=== PATIENT | male | born 1985 | race African-American/Black ===

== ENCOUNTER 2019-05-24 05:27 | Emergency (ER) | payer SELFPAY ==
[~2019-05-24] VITALS: Ht 188 cm; Wt 73.9 kg
[2019-05-24 05:29] VITALS: BP 126/109
[2019-05-24] MEDS ORDERED: HYDROcodone/APAP 5/325 TABLET ONE (07:20)
[2019-05-24] MEDS ORDERED: HYDROcodone/APAP 5/325 TABLET PO ONE (07:30)
== END 2019-05-24 07:45 | disposition home or self-care (01) ==
LOC: ED 07:00
DX: S20.212A Contusion of left front wall of thorax, initial encounter (principal); W18.30XA Fall on same level, unspecified, initial encounter; Y93.89 Activity, other specified; Y92.410 Unspecified street and highway as the place of occurrence of the external cause; Y99.8 Other external cause status
CPT/HCPCS: 99283

== ENCOUNTER 2019-07-26 06:32 | Emergency (ER) | payer SELFPAY ==
[~2019-07-26] VITALS: Ht 185.4 cm; Wt 76.1 kg
[2019-07-26 06:34] VITALS: BP 135/99
[2019-07-26] MEDS ORDERED: DEXAMETHASONE 4 MG TABLET PO ONE (07:00)
[2019-07-26] MEDS ORDERED: AMOXICILLIN/CLAV 875-125MG TABLET PO ONE (07:00)
[2019-07-26] MEDS ORDERED: AMOXICILLIN/CLAV 875-125MG TABLET ONE (07:00)
[2019-07-26] MEDS ORDERED: DEXAMETHASONE 4 MG TABLET ONE (07:00)
[2019-07-26] MEDS ORDERED: SILVER NITRATE STICK TP ONE (07:11)
--- NOTE | 2019-07-26 07:12 | NUR ---
medicated per emar Reviewed medication plan as well as sxs to watch for (fever/increased swelling/redness/voice/swallowing changes
--- NOTE | 2019-07-26 07:19 | NUR ---
no reaction to medicine discharged home
== END 2019-07-26 07:24 | disposition home or self-care (01) ==
LOC: ED 07:00
DX: J02.9 Acute pharyngitis, unspecified (principal); M54.2 Cervicalgia; F17.210 Nicotine dependence, cigarettes, uncomplicated; F14.10 Cocaine abuse, uncomplicated; Z72.9 Problem related to lifestyle, unspecified
CPT/HCPCS: 99283